=== PATIENT | female | born 2000 | race African-American/Black ===

== ENCOUNTER 2021-06-09 12:56 | Emergency (ER) | payer OTHER ==
[2021-06-09 13:44] LABS: Urine Blood 3+ (Negative); Urine Glucose Negative (Negative); Urine Protein 2+ (Negative); Urine Specific Gravity 1.015 (1.005-1.030)
[2021-06-09 13:50] LABS: Absolute Lymphocytes (CBC) 1.2 K/uL (0.7-4.9); Basophils % 0.7 % (0-1.3); Hematocrit 36.6 % (36.0-45.0); Lymphocytes % 24.4 % (15.3-44.8); MPV 8.2 fL (7.6-11.3); RBC Red Blood Cell Count 4.16 M/uL (3.86-4.86)
[2021-06-09 13:59] LABS: Urine Specific Gravity/Preg 1.015 (1.005-1.030)
[2021-06-09 14:07] LABS: Potassium 3.7 mmol/L (3.5-5.1)
--- NOTE | 2021-06-09 15:40 | RAD REPORT ---
EXAM DESCRIPTION: US - Transvaginal OB - 06/09/2021 3:20 pm CLINICAL HISTORY: VAGINAL BLEEDING COMPARISON: No comparisons FINDINGS: The uterus measures 8.4 cm in long axis. There are several hypoechoic lesions, the largest measuring 1.9 cm consistent with intramural fibroid in the lower uterine segment. Other smaller fibr oids noted. The right ovary measures 2.3 x 1.7 x 1.8 cm with volume of 3.6 cc. The left ovary measure s 2.7 x 2.8 x 1.5 cm with volume of 6 cc . Vascular flow is present bilaterally. The endometrial echo complex measures 8 millimeters which is within normal limits for age. IMPRESSION: Bilateral ovarian blood flow present. No free fluid. Uterine fibroids.
--- NOTE | 2021-06-09 15:45 | EDPHYS ---
Physician Documentation [facility] Name: Rica Montaño Age: 21 yrs Sex: Female : 2000 Arrival Date: 06/09/2021 Time: 12:59 Bed 18 Private MD: ED Physician Kunal Espinosa HPI: 06/09 13:38 This 21 yrs old Black Female presents to ER via Ambulatory with complaints of Vaginal kb Bleeding, + Preg <12wks. 13:38 The patient presents to the emergency department with vaginal bleeding, described as kb spotting. course: care: none. Previous pregnancies: in previous pregnancies patient has had. Associated signs and symptoms: Pertinent positives: vaginal bleeding. The patient has not experienced similar symptoms in the past. The patient has not recently seen a physician. Pt states she recently found out she was and today had some spotting. 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 - Social history:: Smoking status: Patient denies any tobacco usage or history of. ROS: 13:38 Constitutional: Negative for fever, chills, and weight loss. kb 13:38 : Positive for vaginal bleeding. 13:38 All other systems are negative. Exam: 13:38 Constitutional: This is a well developed, well nourished patient who is awake, alert, kb and in no acute distress. Head/Face: Normocephalic, atraumatic. ENT: Moist Mucous membranes Respiratory: Respirations even and unlabored. No increased work of breathing, no retractions or nasal flaring. Abdomen/GI: Soft, non-tender. No distention Skin: Warm, dry with normal turgor. Normal color. MS/ Extremity: Pulses equal, no cyanosis. Neurovascular intact. Full, normal range of motion. Neuro: Awake and alert, GCS 15, oriented to person, place, time, and situation. Moves all extremities. Normal gait. Psych: Awake, alert, with orientation to person, place and time. Behavior, mood, and affect are within normal limits. Vital Signs: 13:10 BP 146 / 56; Pulse 70; Resp 14; Temp 98.2(TE); Pulse Ox 100% on R/A; Weight 82.1 kg; ss Height 5 ft. 5 in. (165.10 cm); Pain 0/10; 13:58 BP 100 / 60; Pulse 57; Resp 16; Pulse Ox 100% ; vg1 15:42 BP 109 / 86; Pulse 55; Resp 16; Pulse Ox 100% ; vg1 17:17 BP 103 / 67; Pulse 55; Resp 17; Pulse Ox 100% on R/A; jt3 13:10 Body Mass Index 30.12 (82.10 kg, 165.10 cm) ss MDM: 13:07 Patient medically screened. kb 13:39 Data reviewed: vital signs, nurses notes. Data interpreted: Pulse oximetry: on room air kb is 100 %. Interpretation: normal. 15:45 Counseling: I had a detailed discussion with the patient and/or guardian regarding: the kb historical points, exam findings, and any diagnostic results supporting the discharge/admit diagnosis, lab results, radiology results, the need for outpatient follow up, an OB/Gyne specialist, to return to the emergency department if symptoms worsen or persist or if there are any questions or concerns that arise at home. 06/09 13:10 Order name: Abo/rh Typing; Complete Time: 14:02 kb 06/09 13:10 Order name: Basic Metabolic Panel; Complete Time: 14:24 kb 06/09 13:10 Order name: CBC with Diff; Complete Time: 13:53 kb 06/09 13:10 Order name: Quantitative Hcg; Complete Time: 14:24 kb 06/09 13:44 Order name: Urine Dipstick-Ancillary; Complete Time: 13:44 EDMS 06/09 13:47 Order name: Urine --Ancillary (enter results); Complete Time: 14:02 eb 06/09 13:10 Order name: IV Saline Lock; Complete Time: 13:51 kb 06/09 13:10 Order name: Labs collected and sent; Complete Time: 13:51 kb 06/09 13:10 Order name: NPO; Complete Time: 13:51 kb 06/09 13:10 Order name: Urine Dipstick-Ancillary (obtain specimen); Complete Time: 13:52 kb 06/09 13:10 Order name: Urine Test (obtain specimen); Complete Time: 13:52 kb 06/09 14:26 Order name: US Transvaginal Ob; Complete Time: 15:43 kb Administered Medications: No medications were administered Disposition Summary: 06/09/21 15:45 Discharge Ordered Location: Home kb Condition: Stable kb Diagnosis - Threatened kb Followup: kb - With: Emergency Department - When: As needed - Reason: Worsening of condition Followup: kb - With: Private Physician - When: 2 - 3 days - Reason: Recheck today's complaints, Continuance of care, Re-evaluation by your physician Discharge Instructions: - Discharge Summary Sheet kb - Threatened Miscarriage, [id number] kb - Vaginal Bleeding During , First Trimester, [id number] kb Forms: - Medication Reconciliation Form kb - Thank You Letter kb - Antibiotic Education kb - Prescription Opioid Use kb - Work release form eb Addendum: 06/11/2021 03:48 Co-signature as Attending Physician, Kunal Espinosa MD I agree with the assessment and k dr plan of care. Signatures: Dispatcher [employer] EDMS Emily Archer, OIL GAUGER-C OIL GAUGER-Ckb Kunal Espinosa MD MD [facility] Elizabet Liang, RN RN ss Corrections: (The following items were deleted from the chart) 06/09 14:29 14:25 Transvaginal Ob+US.RAD.BRZ ordered. EDME EDMS
--- NOTE | 2021-06-09 15:45 | ER ---
Nurse's Notes [facility] Name: Rica Montaño Age: 21 yrs Sex: Female : 2000 Arrival Date: 06/09/2021 Time: 12:59 Bed 18 Private MD: Diagnosis: Threatened Presentation: 06/09 13:10 Chief complaint: Patient states: vaginal spotting that began today. Pt found out a few ss days ago she was . Coronavirus screen: Client denies travel out of the [place] in the last 14 days. Ebola Screen: Patient denies exposure to infectious person. Patient denies travel to an Ebola-affected area in the 21 days before illness onset. Initial Sepsis Screen: Does the patient meet any 2 criteria? No. Patient's initial sepsis screen is negative. Does the patient have a suspected source of infection? No. Patient's initial sepsis screen is negative. Risk Assessment: Do you want to hurt yourself or someone else? Patient reports no desire to harm self or others. Onset of symptoms was June 09, 2021. 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 - Social history:: Smoking status: Patient denies any tobacco usage or history of. Screenin:58 Abuse screen: Denies threats or abuse. Nutritional screening: No deficits noted. vg1 Tuberculosis screening: No symptoms or risk factors identified. Fall Risk No fall in past 12 months (0 pts). No secondary diagnosis (0 pts). IV access (20 points). Ambulatory Aid- None/Bed Rest/Nurse Assist (0 pts). Gait- Normal/Bed Rest/Wheelchair (0 pts) Mental Status- Oriented to own ability (0 pts). Total Willett Fall Scale indicates No Risk (0-24 pts). Assessment: 13:13 General: Appears in no apparent distress. comfortable, Behavior is calm, cooperative. vg1 13:13 Pain: Complains of pain in pelvis Pain currently is 3 out of 10 on a pain scale. vg1 Quality of pain is described as crampy, Pain began today. Neuro: Level of Consciousness is awake, alert, obeys commands, Oriented to person, place, time, situation. Cardiovascular: Patient's skin is warm and dry. Respiratory: Airway is patent Respiratory effort is even, unlabored. GI: Patient currently denies diarrhea, nausea, vomiting. : Reports vaginal bleeding that is bright red, light flow, spotty. EENT: No signs and/or symptoms were reported regarding the EENT system. Derm: Skin is intact, is healthy with good turgor. Musculoskeletal: Circulation, motion, and sensation intact. 15:00 Reassessment: Patient appears in no apparent distress at this time. No changes from vg1 previously documented assessment. Patient and/or family updated on plan of care and expected duration. Pain level reassessed. Patient is alert, oriented x 3, equal unlabored respirations, skin warm/dry/pink. Vital Signs: 13:10 BP 146 / 56; Pulse 70; Resp 14; Temp 98.2(TE); Pulse Ox 100% on R/A; Weight 82.1 kg; ss Height 5 ft. 5 in. (165.10 cm); Pain 0/10; 13:58 BP 100 / 60; Pulse 57; Resp 16; Pulse Ox 100% ; vg1 15:42 BP 109 / 86; Pulse 55; Resp 16; Pulse Ox 100% ; vg1 17:17 BP 103 / 67; Pulse 55; Resp 17; Pulse Ox 100% on R/A; jt3 13:10 Body Mass Index 30.12 (82.10 kg, 165.10 cm) ED Course: 12:59 Patient arrived in ED. as 13:07 Emily Archer FNP-C [facility]. kb 13:07 Kunal Espinosa MD is Attending Physician. kb 13:13 Emilie Valladares, CEDRIC is Primary Nurse. vg1 13:13 Triage completed. ss 13:13 Arm band placed on right wrist. ss 13:32 Initial lab(s) drawn, by wi, sent to lab. Inserted saline lock: 22 gauge in right mb4 antecubital area, using aseptic technique. Blood collected. 13:46 Urine collected: clean catch specimen, blood tinged. mb4 13:58 Patient has correct armband on for positive identification. Bed in low position. Call vg1 light in reach. Side rails up X 1. 13:58 No provider procedures requiring assistance completed. vg1 15:20 Transvaginal Ob In Process Unspecified. EDMS 17:17 IV discontinued, intact, bleeding controlled, No redness/swelling at site. Pressure jt3 dressing applied. Administered Medications: No medications were administered Outcome: 15:45 Discharge ordered by . leonarda 17:17 Discharged to home ambulatory. jt3 17:17 Condition: good 17:17 Discharge instructions given to patient, Instructed on discharge instructions, Demonstrated understanding of instructions. 17:19 Patient left the ED. jt3 Signatures: Dispatcher [employer] EDMS Emily Archer, STUDENT MINISTRIES DIRECTOR-C STUDENT MINISTRIES DIRECTOR-Amirah Chávez Shelby, RN RN Lakeshia Henley mb4 Emilie Valladares RN RN vg1 Kendall Houston RN RN jt3
[2021-06-09 18:12] VITALS: TEMP 98.2; O2SAT 100
[2021-06-09 18:25] VITALS: BP 103/67
== END 2021-06-09 17:19 | disposition home or self-care (01) ==
LOC: ER 12:56
DX: O20.0 Threatened abortion (principal); Z3A.12 12 weeks gestation of pregnancy
CPT/HCPCS: 36415; 76817; 80048; 81003; 81025; 84702; 85025; 86900; 86901; 99284

== ENCOUNTER 2022-01-12 20:04 | Emergency (ER) | payer OTHER, SELFPAY ==
--- NOTE | 2022-01-12 21:08 | RAD REPORT ---
EXAM DESCRIPTION: RAD - Hand Right 3 View - 01/12/2022 8:39 pm CLINICAL HISTORY: right 4th mcp pain COMPARISON: No comparisons FINDINGS/IMPRESSION: No acute fracture. No malalignment. No significant focal degenerative changes.
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
[2022-01-12 22:35] VITALS: BP 109/73; TEMP 98.5; O2SAT 100
== END 2022-01-12 21:35 | disposition home or self-care (01) ==
LOC: ER 20:04
DX: S63.8X1A Sprain of other part of right wrist and hand, initial encounter (principal)
CPT/HCPCS: 99283

== ENCOUNTER 2022-08-31 00:16 | Emergency (ER) | payer SELFPAY ==
[2022-08-31 01:42] LABS: Urine Blood Trace-intact (Negative); Urine Glucose Negative (Negative); Urine Protein Negative (Negative); Urine Specific Gravity 1.025 (1.005-1.030); Urine pH 5.5 (5.0-7.0)
[2022-08-31 01:53] LABS: Urine Specific Gravity/Preg 1.025 (1.005-1.030)
[2022-08-31 01:55] LABS: Urine Bacteria <20 /HPF (<20); Urine Mucus Slight /HPF (None Seen); Urine RBC <5 /HPF (None Seen); Urine WBC Clump Rare /HPF (None Seen)
[2022-08-31] MEDS ORDERED: CEFTRIAXONE 250 MG/VIAL ONE (02:14)
[2022-08-31] MEDS ORDERED: WATER FOR INJ,STERILE 10 ML ONE (02:14)
[2022-08-31] MEDS ORDERED: metroNIDAZOLE 500 MG TABLET ONE (02:17)
--- NOTE | 2022-08-31 02:47 | ER ---
Nurse's Notes [facility] Name: Rica Montaño Age: 22 yrs Sex: Female : 2000 Arrival Date: 08/31/2022 Time: 00:19 Bed 19 Private MD: Diagnosis: UTI/ Urinary tract infection, site not specified;Uterine fibroids Presentation: 08/31 00:24 Chief complaint: Patient states: I am having some pelvic pains that had been going on kd3 for a few weeks. I also have a burning in my vagina. I have no spotting. I am sexually active. Coronavirus screen: Vaccine status: Patient reports being unvaccinated. Ebola Screen: No symptoms or risks identified at this time. Initial Sepsis Screen: Does the patient meet any 2 criteria? No. Patient's initial sepsis screen is negative. Does the patient have a suspected source of infection? No. Patient's initial sepsis screen is negative. Risk Assessment: Do you want to hurt yourself or someone else? Patient reports no desire to harm self or others. Onset of symptoms was August 31, 2022. 00:24 Method Of Arrival: Ambulatory kd3 00:24 Acuity: MARIIA 3 kd3 Triage Assessment: 00:25 General: Appears uncomfortable, Behavior is calm, cooperative. Pain: Complains of pain kd3 in pelvis. 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 - Social history:: Smoking status: Reported history of juuling and/or vaping. Screenin:26 Abuse screen: Denies threats or abuse. Denies injuries from another. Nutritional ha1 screening: No deficits noted. Tuberculosis screening: No symptoms or risk factors identified. 00:26 [facility] ED Fall Risk Assessment (Adult) History of falling in the last 3 months, ha1 including since admission No falls in past 3 months (0 pts) Confusion or Disorientation No (0 pts) Intoxicated or Sedated No (0 pts) Impaired Gait No (0 pts) Mobility Assist Device Used No (0 pt) Altered Elimination No (0 pt) Score/Fall Risk Level 0 - 2 = Low Risk Oriented to surroundings, Maintained a safe environment, Educated pt \T\ family on fall prevention, incl call for assistance when getting out of bed, Hourly rounding (assess needs \T\ fall precautionary measures) done. Assessment: 00:26 Reassessment: Patient and/or family updated on plan of care and expected duration. Pain ha1 level reassessed. Patient is alert, oriented x 3, equal unlabored respirations, skin warm/dry/pink. Pain: Complains of pain in pelvis and vaginal area Pain does not radiate. Pain currently is 5 out of 10 on a pain scale. Neuro: Level of Consciousness is awake, alert, obeys commands, Oriented to person, place, time, situation. Cardiovascular: Capillary refill < 3 seconds Patient's skin is warm and dry. Respiratory: Airway is patent Respiratory effort is even, unlabored, Respiratory pattern is regular, symmetrical. GI: No signs and/or symptoms were reported involving the gastrointestinal system. : Reports vaginal pain. EENT: No deficits noted. No signs and/or symptoms were reported regarding the EENT system. Derm: Skin is healthy with good turgor, Skin is normal. Musculoskeletal: Circulation, motion, and sensation intact. Range of motion: intact in all extremities. 01:20 Reassessment: Patient and/or family updated on plan of care and expected duration. Pain ha1 level reassessed. Patient is alert, oriented x 3, equal unlabored respirations, skin warm/dry/pink. awaiting on lab results. 02:15 Reassessment: Patient and/or family updated on plan of care and expected duration. Pain ha1 level reassessed. Patient is alert, oriented x 3, equal unlabored respirations, skin warm/dry/pink. Vital Signs: 00:22 BP 120 / 68; Pulse 91; Resp 16; Temp 98(O); Pulse Ox 100% ; Weight 70.31 kg; Height 5 kd3 ft. 5 in. (165.10 cm); Pain 8/10; 01:22 BP 105 / 72; Pulse 93; Resp 16 S; Pulse Ox 99% on R/A; ha1 02:15 BP 100 / 88; Pulse 88; Resp 16 S; Pulse Ox 99% on R/A; ha1 03:09 BP 118 / 87; Pulse 85; Resp 16 S; Pulse Ox 99% on R/A; ha1 00:22 Body Mass Index 25.79 (70.31 kg, 165.10 cm) kd3 ED Course: 00:19 Patient arrived in ED. ja2 00:22 Patient has correct armband on for positive identification. Placed in gown. Bed in low ha1 position. Call light in reach. Side rails up X 1. 00:25 Triage completed. kd3 00:25 Arm band placed on left wrist. kd3 00:27 Mery Lowe, RN is Primary Nurse. ha1 00:49 Samantha Acuña FNP-C [facility]. snw 00:49 Abran Hoffman MD is Attending Physician. snw 02:11 US Transvaginal Study (Probe) In Process Unspecified. EDMS 03:11 No provider procedures requiring assistance completed. Patient did not have IV access ha1 during this emergency room visit. Administered Medications: 02:15 Drug: metroNIDAZOLE 2 grams Route: PO; ha1 02:30 Follow up: Response: No adverse reaction ha1 02:16 Drug: Rocephin (cefTRIAXone) 250 mg Route: IM; Site: right ventrogluteal; ha1 02:30 Follow up: Response: No adverse reaction ha1 Medication: 03:11 VIS not applicable for this client. ha1 Outcome: 02:46 Discharge ordered by MD. snw 03:11 Discharged to home ambulatory. ha1 03:11 Condition: stable 03:11 Discharge instructions given to patient, Instructed on discharge instructions, follow up and referral plans. medication usage, Demonstrated understanding of instructions, follow-up care, medications, Prescriptions given X 2. 03:11 Patient left the ED. ha1 Signatures: Dispatcher [employer] [facility] Samantha Acuña FNP-C FNP-Camila King 2 Veda Alcala RN RN kd3 Mery Lowe, CEDRIC RN ha1 Corrections: (The following items were deleted from the chart) 02:43 02:20 Reassessment: Patient and/or family updated on plan of care and expected ha1 duration. Pain level reassessed. Patient is alert, oriented x 3, equal unlabored respirations, skin warm/dry/pink. ha1 02:44 02:20 BP 100 / 88; Pulse 88bpm; Resp 16bpm; Spontaneous; Pulse Ox 99% RA; ha1 ha1
--- NOTE | 2022-08-31 02:47 | EDPHYS ---
Physician Documentation [facility] Name: Rica Montaño Age: 22 yrs Sex: Female : 2000 Arrival Date: 08/31/2022 Time: 00:19 Bed 19 Private MD: ED Physician Abran Hoffman HPI: 08/31 01:19 This 22 yrs old Black Female presents to ER via Ambulatory with complaints of Pelvic snw Pain. 01:19 Onset: The symptoms/episode began/occurred 1 month(s) ago, and became persistent. snw Modifying factors: The patient symptoms are alleviated by nothing. kind of a similar experience with BV during . The patient has not recently seen a physician. single sexual partner. 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 - Social history:: Smoking status: Reported history of juuling and/or vaping. ROS: 01:19 Constitutional: Negative for fever, chills, and weight loss, Eyes: Negative for injury, snw pain, redness, and discharge, ENT: Negative for injury, pain, and discharge, Neck: Negative for injury, pain, and swelling, Cardiovascular: Negative for chest pain, palpitations, and edema, Respiratory: Negative for shortness of breath, cough, wheezing, and pleuritic chest pain, Abdomen/GI: Negative for abdominal pain, nausea, vomiting, diarrhea, and constipation, Back: Negative for injury and pain, MS/Extremity: Negative for injury and deformity, Skin: Negative for injury, rash, and discoloration, Neuro: Negative for headache, weakness, numbness, tingling, and seizure, Psych: Negative for depression, anxiety, suicide ideation, homicidal ideation, and hallucinations. 01:19 : Positive for pelvic pain, of the left greater than right pelvic pain. Exam: 01:18 Constitutional: This is a well developed, well nourished patient who is awake, alert, snw and in no acute distress. Head/Face: Normocephalic, atraumatic. Eyes: Pupils equal round and reactive to light, extra-ocular motions intact. Lids and lashes normal. Conjunctiva and sclera are non-icteric and not injected. Cornea within normal limits. Periorbital areas with no swelling, redness, or edema. ENT: Nares patent. No nasal discharge, no septal abnormalities noted. Tympanic membranes are normal and external auditory canals are clear. Oropharynx with no redness, swelling, or masses, exudates, or evidence of obstruction, uvula midline. Mucous membranes moist. Neck: Trachea midline, no thyromegaly or masses palpated, and no cervical lymphadenopathy. Supple, full range of motion without nuchal rigidity, or vertebral point tenderness. No Meningismus. Chest/axilla: Normal chest wall appearance and motion. Nontender with no deformity. No lesions are appreciated. Cardiovascular: Regular rate and rhythm with a normal S1 and S2. No gallops, murmurs, or rubs. Normal PMI, no JVD. No pulse deficits. Respiratory: Lungs have equal breath sounds bilaterally, clear to auscultation and percussion. No rales, rhonchi or wheezes noted. No increased work of breathing, no retractions or nasal flaring. Abdomen/GI: Soft, non-tender, with normal bowel sounds. No distension or tympany. No guarding or rebound. Tender to LLQ. Back: No spinal tenderness. No costovertebral tenderness. Full range of motion. Female : Normal external genitalia. Skin: Warm, dry with normal turgor. Normal color with no rashes, no lesions, and no evidence of cellulitis. MS/ Extremity: Pulses equal, no cyanosis. Neurovascular intact. Full, normal range of motion. Neuro: Awake and alert, GCS 15, oriented to person, place, time, and situation. Cranial nerves II-XII grossly intact. Motor strength 5/5 in all extremities. Sensory grossly intact. Cerebellar exam normal. Normal gait. Psych: Awake, alert, with orientation to person, place and time. Behavior, mood, and affect are within normal limits. Vital Signs: 00:22 BP 120 / 68; Pulse 91; Resp 16; Temp 98(O); Pulse Ox 100% ; Weight 70.31 kg; Height 5 kd3 ft. 5 in. (165.10 cm); Pain 8/10; 01:22 BP 105 / 72; Pulse 93; Resp 16 S; Pulse Ox 99% on R/A; ha1 02:15 BP 100 / 88; Pulse 88; Resp 16 S; Pulse Ox 99% on R/A; ha1 03:09 BP 118 / 87; Pulse 85; Resp 16 S; Pulse Ox 99% on R/A; ha1 00:22 Body Mass Index 25.79 (70.31 kg, 165.10 cm) kd3 MDM: 01:06 Patient medically screened. snw 02:47 Differential diagnosis: viral Infection, bacterial infection, UTI, STI. Data reviewed: snw vital signs, nurses notes, lab test result(s), radiologic studies. I considered the following discharge prescriptions or medication management in the emergency department Medications were administered in the Emergency Department. See MAR. Counseling: I had a detailed discussion with the patient and/or guardian regarding: the historical points, exam findings, and any diagnostic results supporting the discharge/admit diagnosis, lab results, radiology results, the need for outpatient follow up, to return to the emergency department if symptoms worsen or persist or if there are any questions or concerns that arise at home. Special discussion: Based on the patient's Hx, exam, and Dx evaluation, there is no indication for emergent surgery or inpatient Tx. It is understood by the patient/guardian that if the Sx's persist or worsen they need to return immediately for re-evaluation. Based on the history and exam findings, there is no indication for further emergent testing or inpatient evaluation. I discussed with the patient/guardian the need to see the OB Gyne specialist for further evaluation of the symptoms. I discussed with the patient/guardian the need to see the primary care provider for further evaluation of the symptoms. 08/31 00:50 Order name: Urine Microscopic Only; Complete Time: 02:01 [facility] 08/31 01:18 Order name: GC (Fredy/Chl) Probe URINE EDTN 08/31 01:14 Order name: US Transvaginal Study (Probe) [facility] 08/31 01:42 Order name: Urine Dipstick-Ancillary; Complete Time: 02: [facility] 08/31 01:51 Order name: Urine --Ancillary (enter results); Complete Time: 02:01 08/31 02:00 Order name: Urine Culture EDTN 08/31 00:50 Order name: Urine Dipstick-Ancillary (obtain specimen); Complete Time: 01:56 [facility] 08/31 00:50 Order name: Urine Test (obtain specimen); Complete Time: 01:57 snw Administered Medications: 02:15 Drug: metroNIDAZOLE 2 grams Route: PO; ha1 02:30 Follow up: Response: No adverse reaction ha1 02:16 Drug: Rocephin (cefTRIAXone) 250 mg Route: IM; Site: right ventrogluteal; ha1 02:30 Follow up: Response: No adverse reaction ha1 Disposition: 03:13 Co-signature as Attending Physician, Abran Hoffman MD I reviewed the patient's care rt provided by the Advanced Practice Provider and agree with the diagnosis and treatment plan. Disposition Summary: 08/31/22 02:46 Discharge Ordered Location: Home snw Condition: Stable snw Diagnosis - UTI/ Urinary tract infection, site not specified snw - Uterine fibroids snw Followup: snw - With: Emergency Department - When: As needed - Reason: Worsening of condition Followup: snw - With: Private Physician - When: 1 week - Reason: Recheck today's complaints, Continuance of care, Re-evaluation by your physician Discharge Instructions: - Discharge Summary Sheet snw - Uterine Fibroids snw - Urinary Tract Infection, Adult snw - Rehydration, Adult snw Forms: - Medication Reconciliation Form snw - Thank You Letter snw - Antibiotic Education snw - Prescription Opioid Use snw Prescriptions: - Mobic 7.5 mg Oral Tablet - take 1 tablet by ORAL route once daily take with food; 20 tablet; Refills: 0, snw Product Selection Permitted - Doxycycline Hyclate 100 mg Oral Tablet - take 1 tablet by ORAL route once daily; 10 tablet; Refills: 0, Product snw Selection Permitted Signatures: Dispatcher [employer] Samantha Jones FNP-C TRACK SURFACING MACHINE OPERATOR-Csnw Veda Alcala, RN RN kd3 Mery Lowe, RN RN ha1 Abran Hoffman MD MD rt
[2022-08-31 03:23] VITALS: TEMP 98
[2022-08-31 03:31] VITALS: O2SAT 99
[2022-08-31 03:33] VITALS: BP 118/87
--- NOTE | 2022-08-31 14:52 | RAD REPORT ---
EXAM DESCRIPTION: Transvaginal Study Probe 08/31/2022 2:[address] SW[address]PER CLINICAL HISTORY: 22 years, Female, PAIN COMPARISON: 06/09/2021. TECHNIQUE: Utilizing a transvaginal array transducer, real-time ultrasound evaluation of the female pelvis was performed. Color Doppler imaging was used to assess vascular flow. FINDINGS: The uterus measures 9.7 x 5.4 x 6.9 cm. The endometrial stripe demonstrate to be thicken ed and measure 13.4 mm, again noted are the presence of several hypoechoic lesions within the uterus, mid lower uterine segment measuring 2.6 x 2 x 2.4 cm, anterior fundal region measuring 1.6 x 1.7 x 1 .3 and mid anterior uterine body measuring 1.3 x 1.2 x 1.1 cm corresponding to uterine fibroids. Smal l amount of fluid within the cervix The right ovary measured 2.6 x 1.1 x 1.5 cm, the left ovary measures 4.9 x 1.5 x 2.9 cm. There is nor mal vascular flow and spectral waveforms with no evidence for torsion. No free fluid was identified in the posterior cul-de-sac, no adnexal masses seen. IMPRESSION: Uterine fibroid. Otherwise unremarkable pelvic ultrasound. Electronically signed by: Brennen Blas MD 08/31/2022 2:[address] SW[address]PER Due to temporary technical issues with the PACS/Fluency reporting system, reports are being signed by the in house radiologists without review as a courtesy to insure prompt reporting. The interpreting radiologist is fully responsible for the content of the report.
[2022-09-03 16:17] LABS: C.trachomatis RNA,TMA Not Detected (Not Detected)
== END 2022-08-31 03:11 | disposition home or self-care (01) ==
LOC: ER 00:16
DX: N39.0 Urinary tract infection, site not specified (principal); D25.9 Leiomyoma of uterus, unspecified
CPT/HCPCS: 76830; 81003; 81015; 81025; 87077; 87086; 87088; 87186; 87490; 87590; 96372; 99283; J0696